=== PATIENT | male | born 1955 | race Caucasian/White ===

== ENCOUNTER 2022-11-23 05:14 | Observation (INO) | payer OTHER ==
[2022-11-23] MEDS ORDERED: MORPHINE 4 MG/ML SYR ONE ×3 (05:45→15:53)
[2022-11-23] MEDS ORDERED: NA CHLORIDE 0.9% 1,000 ML ONE ×2 (05:46→12:27)
[2022-11-23] MEDS ORDERED: KETOROLAC 30 MG/ML INJ ONE (05:46)
[2022-11-23] MEDS ORDERED: ONDANSETRON 4 MG/2 ML VIAL ONE (05:46)
[2022-11-23 05:52] LABS: Absolute Lymphocytes (CBC) 0.8 K/uL (0.7-4.9); Hematocrit 54.7 % (39.6-49.0); Lymphocytes % 4.4 % (15.3-44.8); MCV 87.4 fL (80-100); MPV 8.4 fL (7.6-11.3); RBC Red Blood Cell Count 6.26 M/uL (4.33-5.43)
[2022-11-23 05:53] LABS: Protime INR 1.01
[2022-11-23 05:59] LABS: Urine Bacteria None Seen /HPF (<20); Urine Bilirubin NEGATIVE (Negative); Urine Blood Negative (Negative); Urine Clarity Clear (Clear); Urine Color Light-Yellow (Yellow); Urine Glucose 2+ (Negative); Urine Protein NEGATIVE (Negative); Urine RBC <5 /HPF (None Seen); Urine Urobilinogen Normal (Normal); Urine WBC Clump Rare /HPF (None Seen)
[2022-11-23 06:06] LABS: Bilirubin Total 0.7 mg/dL (0.2-1.0); Potassium 4.2 mEq/L (3.5-5.1); Protein, Total 7.6 g/dL (6.4-8.2)
--- NOTE | 2022-11-23 07:15 | EDPHYS ---
Physician Documentation [facility] Name: Pop North Age: 67 yrs Sex: Male : 1955 Arrival Date: 11/23/2022 Time: 05:14 Bed 5 Private MD: ED Physician Juan A Martinez HPI: 11/23 06:17 This 67 yrs old Male presents to ER via Ambulatory with complaints of Fall colleen Injury, Back Injury, Back Pain. 06:17 Details of fall: The patient fell from an upright position, while walking. Onset: The colleen symptoms/episode began/occurred 1 day(s) ago. Associated injuries: The patient sustained neck injury, upper back injury, injury to the low back. Severity of symptoms: At their worst the symptoms were mild, moderate, in the emergency department the symptoms are unchanged. The patient has not experienced similar symptoms in the past. Historical: - Allergies: 05:32 No Known Allergies; as6 - PMHx: 05:32 Diabetes mellitus; as6 - PSHx: 05:32 None; as6 - Immunization history:: Client reports having NOT received the Covid vaccine. Last tetanus immunization: up to date. - Social history:: Smoking status: Patient denies any tobacco usage or history of. ROS: 06:20 Constitutional: Negative for fever, chills, and weight loss, Eyes: Negative for injury, colleen pain, redness, and discharge, ENT: Negative for injury, pain, and discharge, Neck: Negative for injury, pain, and swelling, Cardiovascular: Negative for chest pain, palpitations, and edema, Respiratory: Negative for shortness of breath, cough, wheezing, and pleuritic chest pain, Abdomen/GI: Negative for abdominal pain, nausea, vomiting, diarrhea, and constipation, : Negative for injury, bleeding, discharge, and swelling, Skin: Negative for injury, rash, and discoloration, Neuro: Negative for headache, weakness, numbness, tingling, and seizure, Psych: Negative for depression, anxiety, suicide ideation, homicidal ideation, and hallucinations, Allergy/Immunology: Negative for hives, rash, and allergies, Endocrine: Negative for neck swelling, polydipsia, polyuria, polyphagia, and marked weight changes, Hematologic/Lymphatic: Negative for swollen nodes, abnormal bleeding, and unusual bruising. 06:20 Back: Positive for decreased range of motion, pain at rest, pain with movement, flank pain, on the left. 06:20 MS/extremity: Positive for contusion, decreased range of motion, pain, swelling, tenderness. Exam: 06:20 Constitutional: This is a well developed, well nourished patient who is awake, alert, colleen and in no acute distress. Head/Face: Normocephalic, atraumatic. Eyes: Pupils equal round and reactive to light, extra-ocular motions intact. Lids and lashes normal. Conjunctiva and sclera are non-icteric and not injected. Cornea within normal limits. Periorbital areas with no swelling, redness, or edema. ENT: Nares patent. No nasal discharge, no septal abnormalities noted. Tympanic membranes are normal and external auditory canals are clear. Oropharynx with no redness, swelling, or masses, exudates, or evidence of obstruction, uvula midline. Mucous membranes moist. Neck: Trachea midline, no thyromegaly or masses palpated, and no cervical lymphadenopathy. Supple, full range of motion without nuchal rigidity, or vertebral point tenderness. No Meningismus. Chest/axilla: Normal chest wall appearance and motion. Nontender with no deformity. No lesions are appreciated. Cardiovascular: Regular rate and rhythm with a normal S1 and S2. No gallops, murmurs, or rubs. Normal PMI, no JVD. No pulse deficits. Respiratory: Lungs have equal breath sounds bilaterally, clear to auscultation and percussion. No rales, rhonchi or wheezes noted. No increased work of breathing, no retractions or nasal flaring. Abdomen/GI: Soft, non-tender, with normal bowel sounds. No distension or tympany. No guarding or rebound. No evidence of tenderness throughout. Male : Normal genitalia with no discharge or lesions. Skin: Warm, dry with normal turgor. Normal color with no rashes, no lesions, and no evidence of cellulitis. MS/ Extremity: Pulses equal, no cyanosis. Neurovascular intact. Full, normal range of motion. Neuro: Awake and alert, GCS 15, oriented to person, place, time, and situation. Cranial nerves II-XII grossly intact. Motor strength 5/5 in all extremities. Sensory grossly intact. Cerebellar exam normal. Normal gait. Psych: Awake, alert, with orientation to person, place and time. Behavior, mood, and affect are within normal limits. 06:20 Back: pain, that is moderate, of the lumbar area, left low back and left mid back, ROM is painful, with rotation to the right, with rotation to the left, with flexion, with extension, normal spinal alignment noted, CVA tenderness, that is moderate, that is severe, is noted on the left, vertebral tenderness, is not appreciated, muscle spasm, is appreciated in the lumbar area, left low back and left mid back. Vital Signs: 05:32 BP 134 / 93; Pulse 100; Resp 18 S; Temp 98.5(O); Pulse Ox 95% on R/A; Weight 97.52 kg as6 (R); Height 6 ft. 1 in. (R); Pain 10/10; 05:50 BP 128 / 94; Pulse 97; Resp 18 S; Pulse Ox 92% ; ha1 08:00 BP 108 / 85; Pulse 89; Resp 16; Pulse Ox 95% ; bp 10:16 BP 97 / 77; Pulse 92; Resp 18; Pulse Ox 95% ; ko1 11:30 BP 97 / 69; Pulse 85; Resp 16; Pulse Ox 96% ; bp 12:22 BP 101 / 75; Pulse 73; Resp 16; Pulse Ox 98% ; bp 05:32 Body Mass Index 28.37 (97.52 kg, 185.42 cm) as6 05:32 Pain Scale: Adult as6 Enio Coma Score: 05:51 Eye Response: spontaneous(4). Motor Response: obeys commands(6). Verbal Response: vc1 oriented(5). Total: 15. Trauma Score (Adult): 05:51 Eye Response: spontaneous(1); Verbal Response: oriented(1); Motor Response: obeys vc1 commands(2); Systolic BP: > 89 mm Hg(4); Respiratory Rate: 10 to 29 per min(4); Enio Score: 15; Trauma Score: 12 MDM: 05:38 Patient medically screened. colleen 06:23 Differential diagnosis: UTI, arthritis, chronic back pain, Fracture Hydronephrosis colleen Osteoporosis Peptic Ulcer. Differential diagnosis: closed head injury, contusion, fracture, multiple trauma, sprain, strain. Data reviewed: vital signs, nurses notes, lab test result(s), radiologic studies, CT scan. Consideration of Admission/Observation Escalation of care including admission/observation considered. I considered the following discharge prescriptions or medication management in the emergency department Medications were administered in the Emergency Department. See MAR. Test considered but Not performed: Ultrasound no renal usg. 10:13 ED course: Patient found to have a right upper lobe consolidation involving essentially rt the entire lobe. The patient's pain is on the left side, this does not clinically fit with a picture of trauma. Patient with a leukocytosis, tachycardia, tachypnea with hypoxia, other is the possibility this is infectious. Had a long discussion with the family regarding this. I did discuss with pulmonology on-call states comfortable keeping the patient here and does not require transfer to trauma center. Will give patient empiric antibiotics, admit to the hospital for further care.. 11/23 05:31 Order name: CBC with Diff; Complete Time: 06:16 11/23 05:31 Order name: Comprehensive Metabolic Panel; Complete Time: 06:16 11/23 05:31 Order name: PT-INR; Complete Time: 06:16 11/23 05:31 Order name: Urinalysis W/Microscopic; Complete Time: 06:16 11/23 05:38 Order name: Type And Screen; Complete Time: 07:14 as11/23 07:19 Order name: CPK; Complete Time: 07:49 rt 11/23 08:19 Order name: Lactate w/ 2H reflex if indic.; Complete Time: 09:24 rt 11/23 08:19 Order name: Blood Culture Adult (2) rt 11/23 11:33 Order name: ABO/RH no charge; Complete Time: 11:35 EDMS 11/23 11:50 Order name: Magnesium EDMS 11/23 11:50 Order name: Phosphorus EDMS 11/23 11:50 Order name: Protime (+INR) EDMS 11/23 11:50 Order name: T4 Free EDMS 11/23 11:50 Order name: Thyroid Stimulating Hormone EDMS 11/23 11:50 Order name: Urinalysis w/ reflexes EDMS 11/23 11:50 Order name: Basic Metabolic Panel EDMS 11/23 11:50 Order name: Basic Metabolic Panel EDMS 11/23 11:50 Order name: CBC with Automated Diff EDMS 11/23 11:50 Order name: CBC with Automated Diff EDMS 11/23 11:50 Order name: Lipid Profile EDIL 11/23 11:50 Order name: Lipid Profile [facility] 11/23 05:31 Order name: CT Traumagram (Head C Spine CAP W Con) as6 11/23 11:41 Order name: Lumbar Spine Wo Con; Complete Time: 13:14 EDIL 11/23 11:11 Order name: Diet Ada 2200 Dev; Complete Time: 11:11 bp Administered Medications: 05:54 Drug: Ondansetron IVP 4 mg Route: IVP; Site: right antecubital; vc1 11:12 Follow up: Response: No adverse reaction bp 05:54 Drug: Ketorolac IVP 15 mg Route: IVP; Site: right antecubital; vc1 11:12 Follow up: Response: No adverse reaction bp 05:54 Drug: morphine IVP or IV 4 mg Route: IVP; Infused Over: 4 mins; Site: right antecubital;vc1 11:12 Follow up: Response: No adverse reaction bp 05:55 Drug: NS 0.9% IV 1000 ml Route: IV; Rate: 1 bolus; Site: right antecubital; vc1 11:12 Follow up: IV Status: Completed infusion; IV Intake: 1000ml bp 09:14 Drug: Meropenem IV 1 grams Route: IV; Rate: calculated rate; Site: right antecubital; ko1 10:17 Follow up: Response: No adverse reaction; IV Status: Completed infusion; IV Intake: ko1 100ml 11:12 Follow up: IV Status: Completed infusion; IV Intake: 100ml bp 12:11 Drug: morphine IVP or IV 4 mg Route: IVP; Infused Over: 4 mins; Site: right antecubital;bp 12:20 Follow up: Response: No adverse reaction bp 12:20 Drug: NS 0.9% IV 1000 ml Route: IV; Rate: 1 bolus; Site: right antecubital; bp Disposition Summary: 11/23/22 10:00 Hospitalization Ordered Hospitalization Status: Inpatient Admission rt Provider: Jevon Nice rt Location: Telemetry/MedSurg (Inpatient) rt Condition: Stable(11/23/22 10:00) rt Problem: new(11/23/22 10:00) rt Symptoms: have improved(11/23/22 10:00) rt Bed/Room Type: Standard rt Room Assignment: 202(11/23/22 12:12) dw Diagnosis - Unspecified bacterial pneumonia rt - Sepsis, unspecified organism rt - Hypoxemia(11/23/22 10:00) rt Forms: - Medication Reconciliation Form rt - SBAR form rt Signatures: Dispatcher [employer] Mahsa Mayers RN RN Lavell Max MD MD cha Peltier, Brian RN RN bp Yony Felix RN RN as6 Noemi Dykes RN RN vc1 Lucía Greco RN RN ko1 Juan A Martinez MD MD rt Corrections: (The following items were deleted from the chart) 07:14 to [facility] rt 07:14 [facility] colleen rt 07:14 Higher level of care colleen rt 07:14 Fair colleen rt 07:14 new colleen rt 07:14 have improved colleen rt 07:14 Hypoxemia colleen rt 07:14 Contusion of lung, unspecified, initial encounter colleen rt 07:14 Hemoptysis colleen rt 07:14 Contusion of lower back and pelvis colleen rt 07:14 Fall on same level, unspecified colleen rt 12:12 10:00 rt dw
--- NOTE | 2022-11-23 07:15 | ER ---
Nurse's Notes [facility] Name: Pop North Age: 67 yrs Sex: Male : 1955 Arrival Date: 11/23/2022 Time: 05:14 Bed 5 Private MD: Diagnosis: Unspecified bacterial pneumonia;Sepsis, unspecified organism;Hypoxemia Presentation: 11/23 05:32 Chief complaint: [place] and as6 fell on his back. pt reports that he has had one episode of hematuria and multiple episodes of coughing blood. Coronavirus screen: At this time, the client does not indicate any symptoms associated with coronavirus-19. Ebola Screen: No symptoms or risks identified at this time. Initial Sepsis Screen: Does the patient meet any 2 criteria? No. Patient's initial sepsis screen is negative. Does the patient have a suspected source of infection? No. Patient's initial sepsis screen is negative. Risk Assessment: Do you want to hurt yourself or someone else? Patient reports no desire to harm self or others. Onset of symptoms was November 22, 2022 at 12:00. 05:32 Method Of Arrival: Ambulatory as6 05:32 Acuity: ISAIAS 2 as6 05:51 Care prior to arrival: Medication(s) given: Cyclobenzaprine \T\0400. Mechanism of Injury: vc1 Fall from standing position. Trauma event details: [facility] occurred in the [facility], [facility] Triage Assessment: 05:34 General: Appears uncomfortable, Behavior is calm, cooperative. Pain: Complains of pain as6 in back. Historical: - Allergies: 05:32 No Known Allergies; as6 - PMHx: 05:32 Diabetes mellitus; as6 - PSHx: 05:32 None; as6 - Immunization history:: Client reports having NOT received the Covid vaccine. Last tetanus immunization: up to date. - Social history:: Smoking status: Patient denies any tobacco usage or history of. Screenin:50 [facility] ED Fall Risk Assessment (Adult) History of falling in the last 3 months, vc1 including since admission Yes- single mechanical fall (1 pt) Confusion or Disorientation No (0 pts) Intoxicated or Sedated No (0 pts) Impaired Gait Yes (1 pt) Mobility Assist Device Used No (0 pt) Altered Elimination No (0 pt) Score/Fall Risk Level 0 - 2 = Low Risk Oriented to surroundings, Maintained a safe environment, Educated pt \T\ family on fall prevention, incl call for assistance when getting out of bed. Abuse screen: Denies threats or abuse. Nutritional screening: No deficits noted. Tuberculosis screening: No symptoms or risk factors identified. Primary Survey: 05:51 NO uncontrolled hemorrhage observed. A: The client is awake and alert. The airway is vc1 patent. Breathing/Chest: Spontaneous respiratory effort, equal unlabored respirations, breath sounds clear bilaterally, regular pattern, symmetrical chest rise and fall. Circulation: No external hemorrhage present. Regular and strong central pulse, skin warm/dry/normal color. Disability Client is alert. Exposure/Environment: There is no evidence of uncontrolled external bleeding. 05:51 Reassessment Breathing:. vc1 Assessment: 07:24 General: Appears in no apparent distress. uncomfortable, Behavior is calm, cooperative, ko1 appropriate for age. Pain: Complains of pain in left mid back and left low back and lumbar area. Neuro: No deficits noted. Cardiovascular: No deficits noted. Respiratory: Reports cough that is pain with cough. GI: No deficits noted. : No deficits noted. EENT: No deficits noted. Derm: No deficits noted. Musculoskeletal: No deficits noted. 08:30 Reassessment: TRANSFER INITIATED. bp 10:30 Reassessment: TRANSFER CANCELLED FOR ADMIT. ADMIT INITIATED. bp 13:17 Reassessment: PT RETURNED FROM MRI. PT AMBROSIO FOR ADMIT. bp Vital Signs: 05:32 BP 134 / 93; Pulse 100; Resp 18 S; Temp 98.5(O); Pulse Ox 95% on R/A; Weight 97.52 kg as6 (R); Height 6 ft. 1 in. (R); Pain 10/10; 05:50 BP 128 / 94; Pulse 97; Resp 18 S; Pulse Ox 92% ; ha1 08:00 BP 108 / 85; Pulse 89; Resp 16; Pulse Ox 95% ; bp 10:16 BP 97 / 77; Pulse 92; Resp 18; Pulse Ox 95% ; ko1 11:30 BP 97 / 69; Pulse 85; Resp 16; Pulse Ox 96% ; bp 12:22 BP 101 / 75; Pulse 73; Resp 16; Pulse Ox 98% ; bp 05:32 Body Mass Index 28.37 (97.52 kg, 185.42 cm) as6 05:32 Pain Scale: Adult as6 Acme Coma Score: 05:51 Eye Response: spontaneous(4). Motor Response: obeys commands(6). Verbal Response: vc1 oriented(5). Total: 15. Trauma Score (Adult): 05:51 Eye Response: spontaneous(1); Verbal Response: oriented(1); Motor Response: obeys vc1 commands(2); Systolic BP: > 89 mm Hg(4); Respiratory Rate: 10 to 29 per min(4); Enio Score: 15; Trauma Score: 12 ED Course: 05:18 Patient arrived in ED. jj6 05:31 Arm band placed on. as6 05:34 Triage completed. as6 05:38 Lavell Funes MD is Attending Physician. colleen 05:40 Inserted saline lock: 20 gauge in right antecubital area, using aseptic technique. vc1 Blood collected. 05:53 Patient has correct armband on for positive identification. Bed in low position. Pulse vc1 ox on. NIBP on. 05:53 Oxygen administration via nasal cannula \T\ 2L/min. vc1 05:54 Thermoregulation: warm blanket given to patient. vc1 06:42 CT Traumagram (Head C Spine CAP W Con) In Process Unspecified. EDMS 07:14 Attending Physician role handed off by Lavell Funes MD rt 07:14 Juan A Martinez MD is Attending Physician. rt 07:15 Lucía Greco, SHAHNAZ is Primary Nurse. ko1 09:00 Blood Culture Adult (2) Sent. ko1 09:00 Lactate w/ 2H reflex if indic. Sent. ko1 09:59 Jevon Nice is Hospitalizing Provider. rt 12:17 No provider procedures requiring assistance completed. Patient admitted, IV remains in bp place. Administered Medications: 05:54 Drug: Ondansetron IVP 4 mg Route: IVP; Site: right antecubital; vc1 11:12 Follow up: Response: No adverse reaction bp 05:54 Drug: Ketorolac IVP 15 mg Route: IVP; Site: right antecubital; vc1 11:12 Follow up: Response: No adverse reaction bp 05:54 Drug: morphine IVP or IV 4 mg Route: IVP; Infused Over: 4 mins; Site: right antecubital;vc1 11:12 Follow up: Response: No adverse reaction bp 05:55 Drug: NS 0.9% IV 1000 ml Route: IV; Rate: 1 bolus; Site: right antecubital; vc1 11:12 Follow up: IV Status: Completed infusion; IV Intake: 1000ml bp 09:14 Drug: Meropenem IV 1 grams Route: IV; Rate: calculated rate; Site: right antecubital; ko1 10:17 Follow up: Response: No adverse reaction; IV Status: Completed infusion; IV Intake: ko1 100ml 11:12 Follow up: IV Status: Completed infusion; IV Intake: 100ml bp 12:11 Drug: morphine IVP or IV 4 mg Route: IVP; Infused Over: 4 mins; Site: right antecubital;bp 12:20 Follow up: Response: No adverse reaction bp 12:20 Drug: NS 0.9% IV 1000 ml Route: IV; Rate: 1 bolus; Site: right antecubital; bp Medication: 05:54 VIS not applicable for this client. vc1 Intake: 10:17 IV: 100ml; Total: 100ml. ko1 11:12 IV: 100ml; Total: 200ml. bp 11:12 IV: 1000ml; Total: 1200ml. bp Output: 12:17 Urine: 500ml (Voided); Total: 500ml. bp Outcome: 07:14 ER care complete, transfer ordered by . colleen 10:00 Decision to Hospitalize by Provider. rt 12:17 Admitted to Med/surg accompanied by tech, family with patient, via stretcher, room 202, bp with oxygen, with chart, Report called to MIKE CHRISTIE 12:17 Condition: stable 12:17 Instructed on the need for admit. 13:18 Patient left the ED. bp Signatures: Dispatcher [employer] EDIN Lavell Funes MD MD cha Peltier, Brian RN RN bp Brooke Witt Ashby, RN RN as6 Noemi Dykes RN RN vc1 Pili Wolf RN RN dania1 Lucía Greco RN RN ko1 Juan A Martinez MD MD rt
--- NOTE | 2022-11-23 07:32 | RAD REPORT ---
EXAM DESCRIPTION: CT - Head C Spine Cap John Lassiter - 11/23/2022 6:41 am CLINICAL HISTORY: Head and neck injury with chest and abdominal pain status post fall. Head and neck pain . TECHNIQUE: Computed axial tomography of the head and cervical spine was obtained Computed axial tomography of the chest, abdomen and pelvis was obtained. 100 cc Isovue-300 was given intravenously coronal and sagittal reconstruction was performed. All CT scans are performed using dose optimization technique as appropriate and may include automated exposure control or mA/KV adjustment according to patient size. COMPARISON: None FINDINGS: An intracranial bleed is not seen. The ventricles are normal in caliber. An extra-axial fl uid collection is not noted. Fluid within the sinuses is not seen A cervical fracture is not seen. No dislocation is seen. A mediastinal hematoma is not noted. A pleural effusion is not present. Moderate to large right upper lobe consolidation. Minimal ground-glass opacities left lung The liver, spleen, pancreas, adrenals, kidneys and bladder do not demonstrate an acute traumatic inju ry Renal cysts. Small right inguinal hernia. Postsurgical changes left inguinal hernia repair. IMPRESSION: No acute intracranial abnormality is seen A cervical fracture is not visualized. If the patient continues have symptoms to suggest intracranial /spinal cord pathology then MRI would be recommended. No acute traumatic injury involving the chest, abdomen or pelvis is seen. Moderate to large right upper lobe consolidation probably pneumonia. This should be followed until it is clear to help exclude a post obstructive process/underlying mass
[2022-11-23] MEDS ORDERED: NA CHLORIDE 0.9% 100 ML ONE (08:55)
[2022-11-23] MEDS ORDERED: Meropenem 1000 MG/VIAL IV ONE (08:55)
[2022-11-23] MEDS ORDERED: ACETAMINOPHEN 325 MG TABLET PO PRN (11:37)
[2022-11-23] MEDS ORDERED: ONDANSETRON 4 MG/2 ML VIAL IV PRN (11:47)
[2022-11-23] MEDS ORDERED: LABETALOL 20 MG/4ML SYRINGE IV PRN (11:51)
--- NOTE | 2022-11-23 11:51 | P.HP ---
Certification for Inpatient Patient admitted to: Inpatient With expected LOS: >2 Midnights Patient will require the following post-hospital care: None Practitioner: I am a practitioner with admitting privileges, knowledge of patient current condition, hospital course, and medical plan of care. Services: Services provided to patient in accordance with Admission requirements found in Title 42 Section 412.3 of the Code of Federal Regulations Patient History Date of Service: 11/23/22 Reason for admission: Low back\Upper back\Neck pain History of Present Illness: Patient is a 67-year-old male with a past medical history significant for DM 2 who presents with complaint of low back pain. Patient reported that he fell from an upright position yesterday while fishing after he tripped. Patient reported that he fell on his left side. Patient denies hitting his head or losing consciousness. Patient reported that he had trouble breathing for about 5 minutes when he fell. Patient went home and patient started pain in his neck, upper back and low back. Patient reported associated signs and symptoms of fever, chills and hemoptysis. Patient denies any other signs and symptoms. Symptoms are aggravated or relieved by nothing. Patient decided to present to the hospital for medical evaluation. Allergies No Known Allergies Allergy (Unverified 11/23/22 13:36) Home Medications: Metformin HCl 500 mg PO BID 11/23/22 - Past Medical/Surgical History -: DM Past Surgical History: Reviewed- Non-Contributory - Family History Family History: Reviewed- Non-Contributory - Social History Smoking Status: Never smoker Alcohol use: Yes CD- Drugs: No Caffeine use: No Place of Residence: Home Review of Systems General: Fever, Chills Eyes: Unremarkable ENT: Other (hemoptysis) Respiratory: Shortness of Breath Cardiovascular: Unremarkable Gastrointestinal: Unremarkable Genitourinary: Unremarkable Musculoskeletal: Neck Pain, Back Pain Integumentary: Unremarkable Neurological: Unremarkable Lymphatics: Unremarkable Physical Examination - Physical Exam General: Alert, In no apparent distress, Oriented x3, Cooperative HEENT: Atraumatic, PERRLA, Mucous membr. moist/pink, EOMI, Sclerae nonicteric Neck: Supple, 2+ carotid pulse no bruit, No LAD, Without JVD or thyroid abnormality Respiratory: Clear to auscultation bilaterally, Normal air movement Cardiovascular: No edema, Regular rate/rhythm, Normal S1 S2 Capillary refill: <2 Seconds Gastrointestinal: Normal bowel sounds, Soft and benign, No tenderness Musculoskeletal: No clubbing, Tenderness Integumentary: No rashes, No significant lesion Neurological: Normal speech, Normal strength at 5/5 x4 extr, Normal tone, Normal affect Lymphatics: No axilla or inguinal lymphadenopathy - Studies Laboratory Data (last 24 hrs) 11/23/22 05:38: PT 11.1, INR 1.01 11/23/22 05:38: Sodium 135 L, Potassium 4.2, BUN 15, Creatinine 1.44 H, Glucose 179 H, Total Bilirubin 0.7, AST 25, ALT 28, Alkaline Phosphatase 72 11/23/22 05:38: WBC 18.80 H, Hgb 17.8, Hct 54.7 H, Plt Count 189 Assessment and Plan - Plan --Pneumonia. CT chest indicates Moderate to large right upper lobe consolidation probably pneumonia. Continue antibiotics and nebulizer treatment with albuterol\Atrovent. Continue O2 therapy as needed. Pulmonology consulted. Will await further recommendations. --Hemoptysis. H&H stable. Social Media Specialist on board. We will await further recommendations. --Neck pain\upper back pain\low back pain. CT head\cervical, MRI lumbar unremarkable for any acute finding. We will manage pain with current pain medication regimen. --Sepsis POA\leukocytosis. Sepsis protocol implemented in the ER. Continue antibiotics. -- CKD 3A. Baseline functions unknown. We will continue to monitor renal functions. -- DM2. BS monitoring with sliding scale insulin. --DVT prophylaxis with Lovenox subQ. Discharge Plan: Home Plan to discharge in: Greater than 2 days - Advance Directives Does patient have a Living Will: No Does patient have a Durable POA for Healthcare: No - Code Status/Comfort Care Code Status Assessed: Yes Physician Review: Patient Assessed, Agree with Above Assessment and Plan Critical Care: No
--- NOTE | 2022-11-23 13:13 | RAD REPORT ---
EXAM DESCRIPTION: MRI - Lumbar Spine Mikaela Lassiter- 11/23/2022 1:05 pm CLINICAL HISTORY: Low back pain s/p fall Back pain, radiculopathy COMPARISON: <Comparisons> FINDINGS: Vertebral body heights are within normal limits. No aggressive marrow pattern is observed. No fracture is suspected. The conus medullaris terminates at a normal level. No thickening of the cauda equina or clumping of n erve roots seen. L1-2 level: No significant findings. L2-3 level: Mild degenerative disc disease with minimal posterior disc bulge and mild facet hypertrop hy. L3-4 level: No significant findings. L4-5 level: Mild posterior disc bulge moderate facet and ligamentum flavum hypertrophy. Left foramina l posterior annular fissure. Mild central canal stenosis. L5-S1 level: Moderate facet and ligamentum flavum hypertrophy. IMPRESSION: No acute lumbar spine abnormality is seen. Mild spondylosis. No severe canal or foraminal stenosis at any level.
[2022-11-23 14:08] VITALS: BMI 28.3
[2022-11-23] MEDS: CEFTRIAXONE 1,000 MG in NA CHLORIDE 0.9% 50 ML IVPB SCH (14:42)
[2022-11-23] MEDS: AZITHROMYCIN IV 500 MG in NA CHLORIDE 0.9% 250 ML IVPB SCH (14:43)
[2022-11-23] MEDS: ALBUTEROL 2.5 MG/3 ML NEB SOL NEB SCH ×2 (14:46→20:50)
[2022-11-23] MEDS: IPRATROPIUM BROM 0.5MG/2.5ML NEB SCH ×2 (14:46→20:50)
[2022-11-23 15:41] VITALS: O2SAT 93
[2022-11-23] MEDS: MORPHINE 4 MG/ML SYR IV PRN ×2 (15:46→20:00)
[2022-11-23] MEDS: INSULIN -REGULAR HUMAN 50 UNIT/0.5 ML ML SQ SCH ×2 (16:30→21:00)
[2022-11-23] MEDS ORDERED: ENOXAPARIN 40 MG/0.4 ML SQ SCH (17:00)
[2022-11-23] MEDS ORDERED: BISACODYL 10 MG RECTAL SUPP PR PRN (20:19)
[2022-11-23] MEDS: CYCLOBENZAPRINE 10 MG TAB PO PRN (21:43)
[2022-11-24] MEDS: CYCLOBENZAPRINE 10 MG TAB PO PRN (03:18)
[2022-11-24] MEDS: ALBUTEROL 2.5 MG/3 ML NEB SOL NEB SCH ×2 (03:30→09:08)
[2022-11-24] MEDS: IPRATROPIUM BROM 0.5MG/2.5ML NEB SCH ×2 (03:30→09:08)
[2022-11-24] MEDS: INSULIN -REGULAR HUMAN 50 UNIT/0.5 ML ML SQ SCH (07:30)
[2022-11-24] MEDS ORDERED: HYDROCODONE/APAP 10/325 TAB PO PRN (08:19)
[2022-11-24] MEDS: AZITHROMYCIN IV 500 MG in NA CHLORIDE 0.9% 250 ML IVPB SCH (08:33)
[2022-11-24] MEDS: CEFTRIAXONE 1,000 MG in NA CHLORIDE 0.9% 50 ML IVPB SCH (08:33)
[2022-11-24 08:42] VITALS: BP 154/85; TEMP 99.5
[2022-11-24 08:48] LABS: Absolute Lymphocytes (CBC) 1.2 K/uL (0.7-4.9); Lymphocytes % 8.3 % (15.3-44.8); MCV 87.8 fL (80-100); MPV 8.4 fL (7.6-11.3); RBC Red Blood Cell Count 5.47 M/uL (4.33-5.43)
[2022-11-24] MEDS ORDERED: ASPIRIN 81 MG CHEWABLE TABLET PO SCH (09:00)
[2022-11-24 09:02] LABS: Protime INR 0.9
[2022-11-24 09:11] LABS: Magnesium 1.7 mg/dL (1.6-2.4); Phosphorus 2.2 mg/dL (2.5-4.9); Potassium 4.2 mEq/L (3.5-5.1); Thyroid Stimulating Hormone 1.61 uIU/mL (0.358-3.740)
[2022-11-24 09:34] LABS: Blood Morphology Comment NOT SEEN (NOT SEEN); Platelet Estimate ADEQ; White Blood Cell Scan OK (OK)
[2022-11-24] MEDS ORDERED: CEFTRIAXONE 1,000 MG in NA CHLORIDE 0.9% 50 ML IVPB ONE (10:07)
--- NOTE | 2022-11-24 10:22 | P.DS ---
Admission Date: 11/23/22 Discharge Date: 11/24/22 Disposition: ROUTINE DISCHARGE Discharge Condition: FAIR Reason for Admission: Low back\Upper back\Neck pain - Problems (1) Fracture of lumbar spine Current Visit: Yes Status: Acute (2) Fall Current Visit: Yes Status: Acute (3) Acute respiratory failure with hypoxia Current Visit: Yes Status: Acute (4) Pneumonia Current Visit: Yes Status: Acute (5) Pulmonary contusion Current Visit: Yes Status: Acute Brief History of Present Illness: Patient is a 67-year-old male with a past medical history significant for DM 2 who presents with complaint of low back pain. Patient reported that he tripped and fell from an upright position while fishing. Patient reported that he fell on his left side. Patient denies hitting his head or losing consciousness. Patient reported that he had trouble breathing for about 5 minutes when he fell. Patient went home and patient started experiencing pain in his neck, upper back and low back. Patient reported associated signs and symptoms of fever, chills and hemoptysis. Patient denies any other signs and symptoms. Symptoms are aggravated or relieved by nothing. Chest x-ray done in the ED demonstrated right lung opacity. CT cervical/chest/abdomen/pelvis reported left transverse process fractures involve L1, L2 and L3 and right upper lobe consolidation. Patient was placed on 2 L oxygen by nasal cannula for hypoxia and admitted for further management. Hospital Course: Patient was complaining of lower back pain. He has been able to ambulate without assistance. He is no longer hypoxic on room air. He has been afebrile, no cough. I suspect the right upper lobe consolidations likely related to pulmonary contusion as a result of the fall. Patient lives in [place] and would like to be discharged so he can go back to [place]. No surgical intervention needed for the lumbar spinal process fractures. He is currently not hypoxic. Major concern is worsening of his pulmonary contusion. I discussed this concern with him. He voiced understanding but does not want to stay here another day and stated he would rather seek medical attention at [place] if he gets worse. Patient given another dose of IV Rocephin today and discharged with oral Levaquin for possible pneumonia. Vital Signs/Physical Exam: Temp Pulse Resp BP Pulse Ox 99.5 F 74 16 154/85 H 92 11/24/22 08:00 11/24/22 08:00 11/24/22 08:00 11/24/22 08:00 11/24/22 08:00 General: Alert, In no apparent distress, Oriented x3 HEENT: Mucous membr. moist/pink Neck: Supple, JVD not distended Respiratory: Clear to auscultation bilaterally, Normal air movement, Other (No crackles) Cardiovascular: No edema, Regular rate/rhythm, Normal S1 S2 Gastrointestinal: Normal bowel sounds, Soft and benign, Non-distended, No tenderness Musculoskeletal: No swelling, Tenderness (Lower back) Integumentary: No rashes, No cyanosis Neurological: Normal speech, Normal strength at 5/5 x4 extr, Cranial nerves 3-12 intact Laboratory Data at Discharge: WBC 14.90 thou/uL (4.3-10.9) H 11/24/22 08:38 Hgb 16.0 g/dL (13.6-17.9) D 11/24/22 08:38 Hct 48.0 % (39.6-49.0) 11/24/22 08:38 Plt Count 169 thou/uL (152-406) 11/24/22 08:38 PT 10.8 SECONDS (9.2-12.8) 11/24/22 08:38 INR 0.90 11/24/22 08:38 Sodium 134 mEq/L (136-145) L 11/24/22 08:38 Potassium 4.2 mEq/L (3.5-5.1) 11/24/22 08:38 BUN 14 mg/dL (7-18) 11/24/22 08:38 Creatinine 1.40 mg/dL (0.70-1.30) H 11/24/22 08:38 Glucose 142 mg/dL (74-106) H 11/24/22 08:38 Phosphorus 2.2 mg/dL (2.5-4.9) L 11/24/22 08:38 Magnesium 1.7 mg/dL (1.6-2.4) 11/24/22 08:38 Total Bilirubin 0.7 mg/dL (0.2-1.0) 11/23/22 05:38 AST 25 U/L (15-37) 11/23/22 05:38 ALT 28 U/L (16-61) 11/23/22 05:38 Alkaline Phosphatase 72 U/L (45-117) 11/23/22 05:38 Triglycerides 105 mg/dL (<150) 11/24/22 08:38 Cholesterol 140 mg/dL (<200) 11/24/22 08:38 HDL Cholesterol 37 mg/dL (40-60) L 11/24/22 08:38 Cholesterol/HDL Ratio 3.78 11/24/22 08:38 Home Medications: Metformin HCl 1,000 mg PO BID 11/23/22 Metoprolol Tartrate 25 mg PO DAILY PRN 11/23/22 Omeprazole [Prilosec] 1 cap PO DAILY PRN 11/23/22 Cyclobenzaprine [Flexeril*] 10 mg PO TIDP PRN #30 tab 11/24/22 Hydrocodone 10/APAP 325 [[place] 10/325*] 1 tab PO Q4H PRN #20 tab 11/24/22 levoFLOXacin [Levaquin] 750 mg PO DAILY #10 tab 11/24/22 New Medications: Cyclobenzaprine [Flexeril*] 10 mg PO TIDP PRN #30 tab PRN Reason: Muscle Spasms levoFLOXacin [Levaquin] 750 mg PO DAILY #10 tab Hydrocodone 10/APAP 325 [[place] 10/325*] 1 tab PO Q4H PRN #20 tab PRN Reason: Pain Scale 8-10 (Severe) Diet: ADA Activity: Fall precautions Time spent managing pt's care (in minutes): 33
[2022-11-24] MEDS ORDERED: MAGNESIUM SULFATE 1 gm IVPB 1 GM/100 ML BAG IV ONE (11:00)
[2022-11-24] MEDS ORDERED: POTASS/SODIUM PHOSPHATE 1 PKT POWD.PACK PO SCH (12:00)
--- NOTE | 2022-11-24 13:53 | P.CNS ---
Date of Consult: 11/23/22 Reason for Consult: Hemoptysis possible lung contusion Chief Complaint: Low back\Upper back\Neck pain History of Present Illness: Kidney 67 years of age apparently he was fishing at the [place] he fell backward mated to the hospital with severe back pain in addition to hemoptysis and right upper lobe infiltrate possibly lung contusion no prior history of cardiopulmonary problems before right now his main problem is the back pain Allergies No Known Allergies Allergy (Unverified 11/23/22 13:36) Home Medications: Metformin HCl 1,000 mg PO BID 11/23/22 Metoprolol Tartrate 25 mg PO DAILY PRN 11/23/22 Omeprazole [Prilosec] 1 cap PO DAILY PRN 11/23/22 Cyclobenzaprine [Flexeril*] 10 mg PO TIDP PRN #30 tab 11/24/22 Hydrocodone 10/APAP 325 [[place] 10/325*] 1 tab PO Q4H PRN #20 tab 11/24/22 levoFLOXacin [Levaquin] 750 mg PO DAILY #10 tab 11/24/22 - Past Medical/Surgical History Diabetic: Yes -: DM -: hand surgery -: tennis elbow surgery -: cataract s/x and implants - Social History Alcohol use: Yes CD- Drugs: No Caffeine use: No Place of Residence: Home Review of Systems General: Weakness Respiratory: Hemoptysis Musculoskeletal: Back Pain Physical Examination Temp Pulse Resp BP Pulse Ox 99.5 F 74 16 154/85 H 92 11/24/22 08:00 11/24/22 08:00 11/24/22 08:00 11/24/22 08:00 11/24/22 08:00 General: Oriented x3, Severe distress Neck: Supple Respiratory: Clear to auscultation bilaterally Cardiovascular: No edema, Regular rate/rhythm, Normal S1 S2 Gastrointestinal: Normal bowel sounds, Soft and benign, Non-distended Musculoskeletal: No clubbing, No swelling - Problems (1) Pulmonary contusion Status: Acute Plan: Patient is 67 years of age currently fell backwards developed a presumed fusion of the right upper lobe he does have some airspace disease tired to falling he did not have any pulmonary complaints there is no history of fever or chills he was at his baseline has some hemoptysis in addition patient has some fractured vertebra as stated in the CT scan report and for pain relief has an elevated white count agree with levofloxacin pain relief CT scan shows Left transverse process fractures involve L1, L2 and L3. Informed the patient he needs to follow-up with me to make sure that the right upper lobe infiltrate has resolved or follow-up with a chest x-ray from his primary care physician Qualifiers: Laterality: right
== END 2022-11-24 11:19 | disposition home or self-care (01) ==
LOC: ER 05:14 → INTOOBSV 11:35 → ERHOLD 11:35 → 2ND 12:30
PROVIDERS: ADMIT Internal Medicine; ATTEND Internal Medicine
DX: S32.019A Unspecified fracture of first lumbar vertebra, initial encounter for closed fracture (principal); S27.329A Contusion of lung, unspecified, initial encounter; S32.029A Unspecified fracture of second lumbar vertebra, initial encounter for closed fracture; S32.039A Unspecified fracture of third lumbar vertebra, initial encounter for closed fracture; J18.9 Pneumonia, unspecified organism; J96.01 Acute respiratory failure with hypoxia; R04.2 Hemoptysis; M54.2 Cervicalgia; A41.9 Sepsis, unspecified organism; N18.31 Chronic kidney disease, stage 3a; E11.9 Type 2 diabetes mellitus without complications; W01.198A Fall on same level from slipping, tripping and stumbling with subsequent striking against other object, initial encounter; Y93.89 Activity, other specified; Y92.832 Beach as the place of occurrence of the external cause
CPT/HCPCS: 96365; 96361; 87040 ×2; 85025 ×2; 81001; 80048; 36415 ×2; 86900; 83735; 86850; 82550; 84100; 85610 ×2; 80061; 86901; 82947 ×3; 83605; 84443; 84439; 80053; 70450; 72125; 71260; 74177; 72148; 94640; 96375; 99285; Q9967; J7613 ×4; J7644 ×4; J1650; J2185; J2405; J7050 ×2; J7030 ×2; J0696 ×2; G0378